=== PATIENT | female | born 1980 | race African-American/Black ===

== ENCOUNTER 2016-12-04 13:19 | Emergency (ER) | payer OTHER ==
[~2016-12-04] VITALS: Ht 154.9 cm; Wt 80.0 kg
[~2016-12-04 13:19] MED LIST: LEXAPRO 10MG10 MG PO; LYRICA; LYRICA200 MG PO; MAGIC MOUTH PO; METHOCARBAMOL750 MG PO; NO HOME MEDICATIONS; NORCO 325 MG-51 TAB PO; OXYCODONE; PREDNISONE20 MG PO; RYZOLT100 MG PO; TYLENOL 500MG500 MG PO; ULTRAM; ULTRAM 50MG TAB50 MG PO; ULTRAM50 MG PO; ZOFRAN 4MG T4 MG/TAB PO
[2016-12-04 13:23] VITALS: BP 126/77; PULSE 74; TEMP 98.2
[2016-12-04] MEDS ORDERED: IMITREX 25MG TA25 MG PO (13:28)
[2016-12-04] MEDS ORDERED: AMOXICILLIN 8751 TAB PO (14:14)
== END 2016-12-04 14:28 | disposition home or self-care (01) ==
LOC: COL.ER 13:19
DX: R59.0 Localized enlarged lymph nodes (principal)

== ENCOUNTER 2016-12-28 00:30 | Emergency (ER) | payer OTHER ==
[~2016-12-28] VITALS: Ht 152.4 cm; Wt 79.5 kg
[~2016-12-28 00:30] MED LIST changes: +AMOXICILLIN 8751 TAB PO; +IMITREX 25MG TA25 MG PO
[2016-12-28 01:49] VITALS: BP 106/67; PULSE 85
== END 2016-12-28 01:49 | disposition home or self-care (01) ==
LOC: COL.ER 00:30
DX: R06.02 Shortness of breath (principal); T39.015A Adverse effect of aspirin, initial encounter
CPT/HCPCS: J1200; J2930

== ENCOUNTER 2017-05-04 10:41 | Emergency (ER) | payer OTHER ==
[~2017-05-04] VITALS: Ht 154.9 cm; Wt 81.8 kg
[2017-05-04] MEDS ORDERED: PEPCID 20MG TAB20 MG PO (11:54)
[2017-05-04] MEDS ORDERED: PREDNISONE20 MG PO (11:54)
[2017-05-04 12:07] VITALS: BP 144/88; PULSE 70; TEMP 98.7
== END 2017-05-04 12:18 | disposition home or self-care (01) ==
LOC: COL.ER 10:41
DX: T78.1XXA Other adverse food reactions, not elsewhere classified, initial encounter (principal); G43.909 Migraine, unspecified, not intractable, without status migrainosus; Z91.018 Allergy to other foods
CPT/HCPCS: J7512

== ENCOUNTER 2018-02-10 16:53 | Observation (INO) | payer OTHER ==
[~2018-02-10] VITALS: Ht 152.4 cm; Wt 80.5 kg
[~2018-02-10 16:53] MED LIST changes: +PEPCID 20MG TAB20 MG PO
[2018-02-10 17:18] LABS: BASO % 0.3 % (0.0-2.0); EOS # 0.1 (0.0-0.7); EOS % 1.6 % (0-4.0); GRAN # 5.2 (1.4-6.5); GRAN % 58.5 % (42.2-75.2); HEMATOCRIT 31.5 % (37.0-47.0); HEMOGLOBIN 9.8 g/dl (12.5-16.0); LYMPH # 3.1 (1.2-3.4); LYMPH % 34.7 % (20.0-51.0); MEAN CELL VOLUME 79 fl (80.0-100.0); MEAN CORPUSCULAR HEMOGLOBIN 25 pg (27.0-31.0); MEAN CORPUSCULAR HGB CONC 31 g/dl (33.0-37.0); MONO # 0.4 (0.1-0.6); MONO % 4.7 % (1.7-9.3); PLATELET COUNT 331 K/mm3 (130-400); RED BLOOD COUNT 3.97 M/mm3 (4.10-5.30); REDCELL DISTRIBUTION WIDTH-CV 15.3 % (11.5-14.5)
[2018-02-10] MEDS ORDERED: SYNALAR TP (17:22)
[2018-02-10] MEDS ORDERED: DITROPAN 5MG TAB5 MG PO (17:23)
[2018-02-10] MEDS ORDERED: MIRALAX PA17 GM/Dose PO (17:24)
[2018-02-10 17:26] LABS: INR 1.1 (0.8-3.0); PROTHROMBIN TIME 12.8 SECONDS (9.7-12.8)
[2018-02-10 17:58] LABS: ALANINE AMINOTRANSFERASE 29 U/L (9-52); ALBUMIN 3.9 gm/dL (3.5-5.0); ALKALINE PHOSPHATASE 65 U/L (50-136); ANION GAP 11 mmol/L (7-16); AST,SGOT 40 U/L (15-37); BILIRUBIN,TOTAL 0.4 mg/dL (0.0-1.0); BLOOD UREA NITROGEN 9 mg/dL (7-17); CALCIUM 8.8 mg/dL (8.4-10.2); CARBON DIOXIDE 27 mmol/L (22-30); CHLORIDE 103 mmol/L (98-107); GLUCOSE 88 mg/dL (74-106); POTASSIUM 3.4 mmol/L (3.4-5.0); SODIUM 141 mmol/L (137-145); TOTAL PROTEIN 7.7 gm/dL (6.4-8.2)
[2018-02-10 18:10] LABS: TROPONIN-I < 0.012 ng/mL (0.000-0.034)
[2018-02-10 21:22] VITALS: BP 99/55; PULSE 66; TEMP 98.2
[2018-02-11] VITALS (9 sets, daily range): BP systolic 98–137; BP diastolic 53–93; PULSE 51–116; TEMP 98.1–98.9
[2018-02-11 06:35] LABS: MAGNESIUM 1.9 mg/dL (1.6-2.3)
[2018-02-11 07:12] LABS: IRON,SERUM 39 ug/dL (35-150)
[2018-02-11 07:21] LABS: TOTAL IRON BINDING CAPACITY 409 ug/dL (265-497)
[2018-02-11 07:47] LABS: FERRITIN 12 ng/mL (6-137)
[2018-02-11] MEDS ORDERED: FERROUS SU325 MG/TAB PO (14:05)
== END 2018-02-11 15:55 | disposition home or self-care (01) ==
LOC: COL.ER 16:53 → SURG 20:00
PROVIDERS: Emergency Medicine; Nurse Practitioner Family
DX: R07.9 Chest pain, unspecified (principal); T78.1XXA Other adverse food reactions, not elsewhere classified, initial encounter; D50.9 Iron deficiency anemia, unspecified; M79.7 Fibromyalgia; F32.9 Major depressive disorder, single episode, unspecified; F41.9 Anxiety disorder, unspecified; G43.909 Migraine, unspecified, not intractable, without status migrainosus; I73.00 Raynaud's syndrome without gangrene; K58.9 Irritable bowel syndrome, unspecified; I47.1 Supraventricular tachycardia; Z88.8 Allergy status to other drugs, medicaments and biological substances; Z88.6 Allergy status to analgesic agent
CPT/HCPCS: A9502; G0378; J1650; J2270; J2785; J7030

== ENCOUNTER 2018-03-18 21:32 | Emergency (ER) | payer OTHER ==
[~2018-03-18 21:32] MED LIST changes: +DITROPAN 5MG TAB5 MG PO; +FERROUS SU325 MG/TAB PO; +MIRALAX PA17 GM/Dose PO; +SYNALAR TP
[2018-03-18 21:40] VITALS: TEMP 98.1
[2018-03-18 22:15] LABS: BASO % 0.4 % (0.0-2.0); EOS # 0.2 (0.0-0.7); EOS % 2.2 % (0-4.0); GRAN # 4.4 (1.4-6.5); GRAN % 52.6 % (42.2-75.2); HEMATOCRIT 33.4 % (37.0-47.0); HEMOGLOBIN 10.2 g/dl (12.5-16.0); LYMPH # 3.3 (1.2-3.4); LYMPH % 39.3 % (20.0-51.0); MEAN CELL VOLUME 79 fl (80.0-100.0); MEAN CORPUSCULAR HEMOGLOBIN 24 pg (27.0-31.0); MEAN CORPUSCULAR HGB CONC 31 g/dl (33.0-37.0); MEAN PLATELET VOLUME 9.6 fl (7.4-10.4); MONO # 0.4 (0.1-0.6); MONO % 5.3 % (1.7-9.3); PLATELET COUNT 337 K/mm3 (130-400); RED BLOOD COUNT 4.24 M/mm3 (4.10-5.30); REDCELL DISTRIBUTION WIDTH-CV 15.7 % (11.5-14.5)
[2018-03-18 22:25] LABS: ALANINE AMINOTRANSFERASE 21 U/L (9-52); ALKALINE PHOSPHATASE 65 U/L (50-136); ANION GAP 10 mmol/L (7-16); AST,SGOT 24 U/L (15-37); BILIRUBIN,TOTAL 0.4 mg/dL (0.0-1.0); BLOOD UREA NITROGEN 12 mg/dL (7-17); CALCIUM 9.3 mg/dL (8.4-10.2); CARBON DIOXIDE 27 mmol/L (22-30); CHLORIDE 102 mmol/L (98-107); CREATININE, serum 1.11 mg/dL (0.52-1.25); GLUCOSE 105 mg/dL (74-106); INR 1.1 (0.8-3.0); POTASSIUM 3.4 mmol/L (3.4-5.0); PROTHROMBIN TIME 12.3 SECONDS (9.7-12.8); SODIUM 139 mmol/L (137-145); TOTAL PROTEIN 7.9 gm/dL (6.4-8.2)
[2018-03-18 22:29] LABS: D-DIMER < 200.00 ng/mLDDu (200-230)
[2018-03-18 22:36] LABS: TROPONIN-I < 0.012 ng/mL (0.000-0.034)
[2018-03-18 23:35] VITALS: BP 108/74; PULSE 85
== END 2018-03-18 23:35 | disposition home or self-care (01) ==
LOC: COL.ER 21:32
PROVIDERS: Emergency Medicine
DX: T80.1XXA Vascular complications following infusion, transfusion and therapeutic injection, initial encounter (principal); M79.7 Fibromyalgia; Z98.51 Tubal ligation status; Z98.890 Other specified postprocedural states

== ENCOUNTER 2018-07-21 08:57 | Emergency (ER) | payer OTHER ==
[~2018-07-21] VITALS: Ht 152.4 cm; Wt 80.9 kg
[2018-07-21 09:03] VITALS: TEMP 99.2
[2018-07-21] MEDS ORDERED: PREDNISONE20 MG PO (10:55)
[2018-07-21 11:04] VITALS: BP 111/77; PULSE 70
== END 2018-07-21 11:04 | disposition home or self-care (01) ==
LOC: COL.ER 08:57
DX: T78.3XXA Angioneurotic edema, initial encounter (principal); F32.9 Major depressive disorder, single episode, unspecified; M79.7 Fibromyalgia; K58.9 Irritable bowel syndrome, unspecified; Z88.5 Allergy status to narcotic agent
CPT/HCPCS: J7512

== ENCOUNTER 2018-07-23 19:34 | Emergency (ER) | payer OTHER ==
[~2018-07-23] VITALS: Ht 152.4 cm; Wt 80.9 kg
[2018-07-23 19:38] VITALS: BP 155/82; TEMP 97.2
[2018-07-23 21:10] VITALS: PULSE 80
== END 2018-07-23 21:10 | disposition home or self-care (01) ==
LOC: COL.ER 19:34
DX: T78.40XA Allergy, unspecified, initial encounter (principal); R22.1 Localized swelling, mass and lump, neck; F32.9 Major depressive disorder, single episode, unspecified
CPT/HCPCS: J2930

== ENCOUNTER 2019-01-31 17:36 | Emergency (ER) | payer OTHER ==
[~2019-01-31] VITALS: Ht 152.4 cm; Wt 81.2 kg
[2019-01-31 17:52] VITALS: BP 154/86; TEMP 99
[2019-01-31] MEDS ORDERED: LEXAPRO 10MG10 MG PO (18:08)
[2019-01-31] MEDS ORDERED: ZYRTEC 10MG10 MG PO (18:09)
[2019-01-31] MEDS ORDERED: NORVASC 10MG10 MG PO (18:10)
[2019-01-31] MEDS ORDERED: VITAMIN B12 781 TAB PO (18:10)
[2019-01-31] MEDS ORDERED: FOLIC ACID0.4 MG PO (18:10)
[2019-01-31] MEDS ORDERED: FLEXERIL 1010 MG/TAB PO ×2 (18:11→20:04)
[2019-01-31] MEDS ORDERED: CYMBALTA 20MG20 MG PO (18:11)
[2019-01-31] MEDS ORDERED: NITROSTAT0.4 MG/TAB SL (18:13)
[2019-01-31 18:39] LABS: BASO % 0.4 % (0.0-2.0); EOS # 0.1 (0.0-0.7); GRAN # 3.5 (1.4-6.5); GRAN % 51.1 % (42.2-75.2); LYMPH # 2.9 (1.2-3.4); LYMPH % 42.3 % (20.0-51.0); MEAN CELL VOLUME 79 fl (80.0-100.0); MEAN CORPUSCULAR HGB CONC 31 g/dl (33.0-37.0); MEAN PLATELET VOLUME 9.1 fl (7.4-10.4); MONO # 0.3 (0.1-0.6); MONO % 4.1 % (1.7-9.3); PLATELET COUNT 323 K/mm3 (130-400); RED BLOOD COUNT 4.03 M/mm3 (4.10-5.30); REDCELL DISTRIBUTION WIDTH-CV 15.4 % (11.5-14.5)
[2019-01-31 18:40] LABS: HEMOGLOBIN 9.9 g/dl (12.5-16.0); MEAN CORPUSCULAR HEMOGLOBIN 25 pg (27.0-31.0)
[2019-01-31 18:53] LABS: ALANINE AMINOTRANSFERASE 15 U/L (9-52); ALBUMIN 3.8 gm/dL (3.5-5.0); ALKALINE PHOSPHATASE 65 U/L (50-136); ANION GAP 7 mmol/L (7-16); AST,SGOT 22 U/L (15-37); BILIRUBIN,TOTAL 0.5 mg/dL (0.0-1.0); BLOOD UREA NITROGEN 10 mg/dL (7-17); CALCIUM 8.9 mg/dL (8.4-10.2); CARBON DIOXIDE 26 mmol/L (22-30); CHLORIDE 104 mmol/L (98-107); CREATININE, serum 0.85 (0.52-1.25); GLUCOSE 92 mg/dL (74-106); SODIUM 137 mmol/L (137-145)
[2019-01-31 19:04] LABS: POTASSIUM 3.6 mmol/L (3.4-5.0)
[2019-01-31 19:13] LABS: TROPONIN-I < 0.012 ng/mL (0.000-0.035)
[2019-01-31] MEDS ORDERED: LIDODERM 5% PATC1 EA TP (20:04)
[2019-01-31 20:30] VITALS: PULSE 72
== END 2019-01-31 20:30 | disposition home or self-care (01) ==
LOC: COL.ER 17:36
PROVIDERS: Emergency Medicine
DX: R07.89 Other chest pain (principal); R06.00 Dyspnea, unspecified; M79.7 Fibromyalgia; F41.9 Anxiety disorder, unspecified; F32.9 Major depressive disorder, single episode, unspecified; G43.909 Migraine, unspecified, not intractable, without status migrainosus; K58.9 Irritable bowel syndrome, unspecified; Z98.890 Other specified postprocedural states; Z98.51 Tubal ligation status

== ENCOUNTER 2019-08-08 09:59 | Emergency (ER) | payer OTHER ==
[~2019-08-08] VITALS: Ht 154.9 cm; Wt 75.9 kg
[~2019-08-08 09:59] MED LIST changes: +CYMBALTA 20MG20 MG PO; +FLEXERIL 1010 MG/TAB PO; +FOLIC ACID0.4 MG PO; +LIDODERM 5% PATC1 EA TP; +NITROSTAT0.4 MG/TAB SL; +NORVASC 10MG10 MG PO; +VITAMIN B12 781 TAB PO; +ZYRTEC 10MG10 MG PO
[2019-08-08 10:06] VITALS: TEMP 99
[2019-08-08] MEDS ORDERED: AMOXICILLIN 8751 TAB PO (10:23)
[2019-08-08 11:14] VITALS: BP 119/70; PULSE 73
== END 2019-08-08 11:16 | disposition home or self-care (01) ==
LOC: COL.ER 09:59
DX: J32.0 Chronic maxillary sinusitis (principal)
CPT/HCPCS: J8540

== ENCOUNTER 2019-08-19 21:34 | Emergency (ER) | payer OTHER ==
[~2019-08-19] VITALS: Ht 154.9 cm; Wt 76.4 kg
[2019-08-19 21:41] VITALS: TEMP 98
[2019-08-19 22:34] LABS: BASO # 0.1 (0.0-0.2); BASO % 0.5 % (0.0-2.0); EOS # 0.2 (0.0-0.7); EOS % 1.9 % (0-4.0); GRAN # 4.5 (1.4-6.5); GRAN % 48.7 % (42.2-75.2); HEMOGLOBIN 10.5 g/dl (12.5-16.0); LYMPH % 43.7 % (20.0-51.0); MEAN CELL VOLUME 82 fl (80.0-100.0); MEAN CORPUSCULAR HEMOGLOBIN 25 pg (27.0-31.0); MEAN CORPUSCULAR HGB CONC 31 g/dl (33.0-37.0); MEAN PLATELET VOLUME 9.8 fl (7.4-10.4); MONO # 0.5 (0.1-0.6); MONO % 4.9 % (1.7-9.3); PLATELET COUNT 327 K/mm3 (130-400); RED BLOOD COUNT 4.13 M/mm3 (4.10-5.30)
[2019-08-19 22:36] LABS: HEMATOCRIT 33.9 % (37.0-47.0)
[2019-08-19 22:45] LABS: PROTHROMBIN TIME 11.5 SECONDS (9.7-12.8)
[2019-08-19 22:47] LABS: PARTIAL THROMBOPLASTIN TIME 29.7 SECONDS (26.0-37.0)
[2019-08-19 22:50] LABS: ALANINE AMINOTRANSFERASE 14 U/L (9-52); ALKALINE PHOSPHATASE 61 U/L (50-136); ANION GAP 8 mmol/L (7-16); AST,SGOT 20 U/L (15-37); BILIRUBIN,TOTAL 0.2 mg/dL (0.0-1.0); BLOOD UREA NITROGEN 14 mg/dL (7-17); CALCIUM 8.7 mg/dL (8.4-10.2); CARBON DIOXIDE 27 mmol/L (22-30); CHLORIDE 103 mmol/L (98-107); CREATININE, serum 0.89 (0.52-1.25); GLUCOSE 110 mg/dL (74-106); SODIUM 138 mmol/L (137-145); TOTAL PROTEIN 7.1 gm/dL (6.4-8.2)
[2019-08-19 23:02] LABS: TROPONIN-I < 0.012 ng/mL (0.000-0.035)
[2019-08-20 00:06] VITALS: BP 111/77; PULSE 80
== END 2019-08-20 00:06 | disposition home or self-care (01) ==
LOC: COL.ER 21:34
PROVIDERS: Family Medicine
DX: R07.89 Other chest pain (principal)